=== PATIENT | male | born 1980 | race Caucasian/White ===

== ENCOUNTER 2023-06-23 08:09 | Emergency (ER) | payer BC, SELFPAY ==
[2023-06-23 08:20] VITALS: BP 179/104; PULSE 87; RESP 18; TEMP 36.8; O2SAT 98
--- NOTE | 2023-06-23 08:27 | ED.MALEGU ---
HPI - Male Genitourinary General Stated complaint: std check History of Present Illness HPI Narrative: patient presents with concerns for std patient denies any exposure no symptoms is concerned due to one incidence of unprotected sexual intercourse. Related Data Home Medications Medication Instructions Recorded Confirmed losartan 50 mg tablet 50 mg PO DAILY 06/23/23 06/23/23 Allergies Allergy/AdvReac Type Severity Reaction Status Date / Time No Known Allergies Allergy Unverified 06/23/23 08:17 Review of Systems Review of Systems: Review of systems CONSTITUTIONAL: Denies fever, chills, or sweats. EYES: Denies visual changes, redness, or discharge. ENT: Denies rhinorrhea, congestion, sore throat, or otalgia. CARDIOVASCULAR: Denies chest pain, palpitations, or edema. RESPIRATORY: Denies cough or dyspnea. GASTROINTESTINAL: Denies abdominal pain, nausea, vomiting, or diarrhea. GENITOURINARY: Denies dysuria or hematuria. SKIN: Denies rash or itching. MUSCULOSKELETAL: Denies back pain, joint pain, or myalgia. NEUROLOGIC: Denies headache, numbness, or weakness. PSYCHIATRIC: Denies anxiety or depression. PMFSH Comments At time of signature, agree with nursing past medical, surgical, social and family history. There is no relevant family history pertinent to the presenting complaint Exam Narrative: GENERAL: Well-appearing, well-nourished, and in no acute distress. HEAD: Normocephalic, atraumatic. EYES: PERRLA and EOMI. ENT: Nares clear, no rhinorrhea or epistaxis. Mucous membranes moist. NECK: Supple. CHEST: Clear to auscultation. No respiratory distress. HEART: Regular rate and rhythm. No murmur heard. Normal peripheral pulses. ABDOMEN: Soft, nontender, nondistended, normal active bowel sounds. EXTREMITIES: Normal range of motion. No edema. SKIN: Warm, dry, no rash. NEURO: No focal deficits. Alert and oriented x3. [place] Coma Scale Eye Opening: Spontaneous 4 Cris Coma Scale Motor: Obeys Commands 6 [place] Coma Scale Verbal: Oriented 5 [place] Coma Scale Total 15 Course Course Level of Care: Express Care Visit Vital Signs Vital signs: Vital Signs Temperature 36.8 C 06/23/23 08:20 Pulse Rate 87 06/23/23 08:20 Respiratory Rate 18 06/23/23 08:20 Blood Pressure 179/104 H 06/23/23 08:20 Pulse Oximetry 98 06/23/23 08:20 Oxygen Delivery Room Air 06/23/23 08:20 Temperature 36.8 C 06/23/23 08:20 Pulse Rate 87 06/23/23 08:20 Respiratory Rate 18 06/23/23 08:20 Blood Pressure 179/104 H 06/23/23 08:20 Pulse Oximetry 98 06/23/23 08:20 Oxygen Delivery Room Air 06/23/23 08:20 Please GIAN schedule a followup visit with your personal physician for further evaluation and treatment. Including recheck and discussion of your blood pressure. If your symptoms persist, change or worsen significantly before you can contact your personal physician then please, without delay, go to the emergency department for further evaluation discussed treatment today patient declines any treatment and will wait for results and will be treated if anything is positive. MDM - Male Genitourinary Differential Diagnosis Differential diagnosis: Likely urinary tract infection, urethritis, epididymitis, genital herpes simplex, prostatitis and acute retention of urine Discharge Plan Discharge Clinical Impression: Encounter for assessment of STD exposure Patient Disposition: Home, Self-Care Condition: Stable Instructions: Sexually Transmitted Diseases (ED) Additional Instructions: we will call with results when available we only test for gonorrhea, chlamydia and trichomonosis at this facility please practice safe sex for further testing follow up with your primary care provider or [facility] Follow-up/Referrals: Harms,Luis A Rodriges M.D. [Primary Care Provider] -
[2023-06-23 08:29] VITALS: BP 179/104; PULSE 87; RESP 18; TEMP 36.8; O2SAT 98
[2023-06-23 08:35] VITALS: BP 160/90
== END 2023-06-23 08:35 | disposition home or self-care (01) ==
PROVIDERS: Emergency Provider Nurse Practitioner Family; PCP Family Medicine
DX: Z20.2 Contact with and (suspected) exposure to infections with a predominantly sexual mode of transmission (principal); I10 Essential (primary) hypertension
CPT/HCPCS: 81003; 87491; 87591; 87661; 99203; G0463

== ENCOUNTER 2025-08-19 17:13 | Emergency (ER) | payer OTHER, SELFPAY ==
--- OUTSIDE RECORDS SUMMARY | 2025-08-19 17:18 | XMS_ITS | Clinical Summary ---
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 Name Role Phone Unavailable Primary Care Provider Unavailabl e Social History Tobacco Use Types Packs/Day Years Used Date Smoking Tobacco: Never Assessed Sex and Gender Information Value Date Recorded Sex Assigned at Not on file Legal Sex Male 8:27 PM CDT Gender Identity Not on file Sexual Orientation Not on file Plan of Treatment Health Maintenance Due Date Last Done Comments Annual Physical 1984 Hepatitis C 1999 DTaP, Tdap and Td Vaccines ( 1 - Tdap) 2000 Hepatitis B Vaccines (1 of 3 - 19+ 3-dose series) 2000 HPV Vaccines (1 - 3-dose SCD M series) 2008 COVID-19 Vaccine (1 - 2023-2 5 season) 2025 Meningococcal B Vaccine Aged Out No l onger eligible based on patient's age to complete this topic Meningococcal Vaccine Aged Out No carl rodrigo eligible based on patient's age to complete this topic Pneumococcal Vaccine: Pediat rics (0 to 5 Years) and At-Risk Patients (6 to 49 Years) Aged Out No longer eligible b ased on patient's age to complete this topic RSV Immunizations Under 20 Months Aged Out No longer eligible based on patient's age to complete this topic
--- OUTSIDE RECORDS SUMMARY | 2025-08-19 17:18 | XMS_ITS | Clinical Summary ---
Author Organization [facility] Address [address] [place] [address] Phone Care Team Providers Care Concrete Journeyman Name Role Phone Luis A Valentino MD Primary Care Provider [phone] Allergies No known active allergies Medications lisinopril (PRINIVIL, ZESTRIL) 20 MG Tablet 08/09/2020 Active Social History Tobacco Use Types Packs/Day Years Used Date Smoking Tobacco: Never Smokeless Tobacco: Never Sex and Gender Information Value Date Recorded Sex Assigned at Not on file Legal Sex Male 8:47 PM CDT Gender Identity Not on file Sexual Orientation Not on file Last Filed Vital Signs Vital Sign Reading Time Taken Comments Blood Pressure 170/90 10/25/2020 4: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 Pulse 87 10/25/2020 4: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 Temperature 37.1 C (98.7 F) 10/25/2020 4: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 Respiratory Rate 20 10/25/2020 4: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 Oxygen Saturation 98% 10/25/2020 4: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 Inhaled Oxygen Concentration - - Weight - - Height - - Body Mass Index - - Plan of Treatment Health Maintenance Due Date Last Done Comments Hepatitis C Virus (HCV) Screening 1981 TdaP Immunization 1981 Hepatitis B Immunization (1 of 3 - 19+ 3-dose series) 2000 Human Papillomavirus (HPV) Immunization (1 - 3-dose SCDM series) 2008 Influenza Immunization (#1) 2025 SARS-COV-2 Immunization (2 - 2024- season) 2025 07/05/2021 Respiratory Syncytial Virus (RSV) Immunization (Adult) (1 - 1-dose 75+ series) 2056 Meningococcal Immunization (ACWY) Aged Out No longer eligible based on patient's age to complete this topic Pneumococcal Immunization Combined Aged Out No longer eligible based on patient's age to complete this topic Rotavirus Immunization Aged Out No lo nger eligible based on patient's age to complete this topic Insurance [facility] Care Teams Concrete Journeyman Relationship Specialty Start Date End Date [place] [id number] PCP - General Internal Medicine 10/25/20
--- OUTSIDE RECORDS SUMMARY | 2025-08-19 17:18 | XMS_ITS | Clinical Summary ---
Author Organization [facility] [address] [facility] lt Address [address] [place] [address] Care Team Providers Care Machine Chocolate Molder Name Role Phone Luis A Valentino MD Primary Care Provider [phone] Allergies No known active allergies Medications ibuprofen (ADVIL,MOTRIN) 200 mg tab/cap Take 1 tablet/capsule (200 mg total) by mouth 2 (two) times a day Active albuterol HFA (PROVENTIL HFA,VENTOLIN HFA,PROAIR HFA) 90 mcg/actuation inhalerIndicatio ns:Acute cough Inhale 2 puffs every 6 (six) hours as needed for wheezing 1 each 02/15/20 23 Active Additional Information Patient not taking.Reported on 02/20/2025 hydrocortisone (ANUSOL-HC) 25 mg suppositoryIndic ations:Hemorrhoi ds Insert 1 suppository (25 mg total) into the rectum 2 (two) times a day as needed for hemorrhoids 12 suppository 1 11/21/20 23 Active multivitamin with minerals tablet Take 1 tablet by mouth daily Active syringe, disposable, 3 mL syringeIndicatio ns:Low testosterone in male 1 SYRINGE EVERY 14 DAYS 25 each 08/06/20 24 Active fluticasone propionate (FLONASE) 50 mcg/actuation nasal sprayIndications :Non-seasonal allergic rhinitis due to pollen Administer 2 sprays into each nostril daily 1 each 12/24/19 25 Active needle, disp, 23 gauge 23 gauge x 1 needleIndication s:Use to administer testosterone. 1 Device every 14 (fourteen) days 100 each 12/31/19 25 Active needle, disp, 18 G 18 gauge x 1 needleIndication s:Use to draw up testosterone. 1 each every 14 (fourteen) days 100 each 12/31/19 25 Active amLODIPine (NORVASC) 10 mg tablet Take 1 tablet (10 mg total) by mouth daily 90 tablet 3 02/21/20 25 026 Active losartan (COZAAR) 100 mg tabletIndication s:Hypertension, essential Take 1 tablet (100 mg total) by mouth daily 90 tablet 3 02/21/20 25 026 Active testosterone cypionate (DEPO-TESTOTERON E) 200 mg/mL injectionIndicat ions:Low testosterone in male Inject 2 mL (400 mg total) into the muscle as instructed every 14 (fourteen) days 10 mL 1 05/19/20 25 Active Active Problems Problem Noted Date Diagnosed Date Chronic sinusitis 01/11/2025 Assessment & Plan (01/11/2025 9:28 AM PUBLIC HEALTH ADVISOR): See discussion as above. Reviewed current medical regimen and given perisstent syjmptoms will refer for anatomic evlauation and will continue to follow response. Low testosterone in male 01/11/2025 Assessment & Plan (01/11/2025 9:28 AM PUBLIC HEALTH ADVISOR): Continue on montiring for therapeutic testosterone levels and will folwlroe sponse. Morbid obesity with BMI of 40.0-44.9, adult 03/2025 Assessment & Plan (01/11/2025 9:27 AM PUBLIC HEALTH ADVISOR): Encoruage 150min/week aerobic exercise. Healthy food chocies and iwll montior ersponse. Body mass index 40.0-44.9, adult ([facility]) 12/31 Assessment & Plan (01/11/2025 9:28 AM PUBLIC HEALTH ADVISOR): Encourage 150min/week aerobic exericse. WIll continue to follow response. Non-seasonal allergic rhinitis due to pollen Assessment & Plan (12/24/2024 8:07 AM PUBLIC HEALTH ADVISOR): Nasal saline spray (Simply saline, [employer] [place], [place], [place]) 2 second sprays or 2 squeezes into each nostril while looking down over the sink, do not need to sniff in. Flonase 2 sprays into each nostril while looking down over the sink, do not sniff in or blow nose after use for at least 30 minutes daily Blood allergy testing Consider adding Zyrtec based on Allergy testing results Follow up in 6-8 weeks, if no improvement will trial Pepcid 40 mg at bedtime BRBPR (bright red blood per rectum) 11/21/2023 Rectal pain 11/21/2023 Intermittent constipation 11/21/2023 Bright red blood per rectum 11/21/2023 Anal or rectal pain 11/21/2023 Constipation 11/21/2023 Encounter for assessment of STD exposure 023 Assessment & Plan (06/26/2023 9:58 AM CDT): Patient is not experiencing any symptoms. Offered additional STD testing/labs, patient declines. Discussed option to go ahead and treat in office today, patient prefers to wait for OSH STD test results. He was tested for gonorrhea, chlamydia and Trichomonas at [facility] on 06/23/2023 Acute idiopathic gout involving toe of left foot 09/11/2018 Assessment & Plan (09/11/2018 2:10 PM CDT): Gout is a syndrome of hyperuricemia and deposition of urate crystals causing attacks of acute inflammatory arthritis; tophi around the joints and possible joint destruction; renal glomerular, tubular, and interstitial disease; and uric acid urolithiasis. The disease most commonly affects the first toe (podagra), foot, ankle, knee, fingers, wrist, and elbow; however, it can affect any joint. Risk factors that can lead to gout include eating foods with high purine like seafood, meat, and alcohol especially Beer. Limit intake of soda and other beverages that contain sweeteners with high fructose corn syrup. Limit vegetables that are high in purines like asparagus, spinach, and mushrooms. If you are diabetic-keep your blood sugar controlled. If you have high blood pressure keep it controled and maintain a healthy weight. Increase water intake and stay well hydrated. Rest and Elevate affected joint when sitting or lying down to help reduce swelling Take any medications as prescribed If symptoms worsen- go to ER or call PCP Obesity (BMI 30-39.9) 09/11/2018 Assessment & Plan (09/11/2018 5:52 PM CDT): Obesity is unchanged. Discussed the patient's BMI. The BMI is above average; BMI management plan is completed. General weight loss/lifestyle modification strategies discussed (elicit support from others; identify saboteurs; non-food rewards, etc). Diet= low-carb Limit white bread, rice, pasta, potatoes, juice, energy drinks, coffee creamers with sugar, sugar sodas, candy, cake, cookies, ice cream. Be more careful with starchy vegetables like corn, carrots, and fruits. Stay away from processed foods, fast foods, fried foods. The cornerstone of this diet is lean grilled meats, green salads or cooked greens, fat-free milk, cottage cheese, nuts like [id number], protein bars with 10-15 g of protein and 20-30 g of carbohydrate. Choose whole grain breads and pastas, brown rice, sweet potatoes, read onions--these whole grains absorb more slowly thus blood sugar does not surge so high so quickly. Avoid drinking juice, eat a piece of fruit instead. Onychomycosis of toenail 09/14/2016 Overview (03/01/2017): Fungal infection of toenail Assessment & Plan (09/11/2018 2:10 PM CDT): Walking on locker room floors or using communal showers can expose you to fungal elements. Shoes that are to tight and get too warm and sweaty can promote fungal growth or athletes foot. You can try putting powder on your feet not in your shoes to help with absorbing moisture. You can also try putting a small strand of Dr. Crouch's lambs wool or cotton balls between your toes if it is between your toes. Try wearing wider shoes. Change the inserts in your shoes frequently. If your athlete foot is really bad you can try Elizabeth's wet dressings applied for 30 minutes twice a day along with your antifungal cream. You must apply the antifungal cream twice a day every day and be consistent with treatment or it will come back. You will need to use the cream for about 4 weeks. You are very susceptible for it to return once you have athletes foot. If it starts to return, you need to use the cream again for 2-4 more weeks. You may also need an oral form of medication to help. Make sure after you shower that you dry everything else before you touch your feet. You can spread this to other parts of your body. 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 WIll montiro resopnse. No change at the present time. WIll follow response. No chest pains/pressures. Assessment & Plan (06/26/2023 1:04 PM CDT): Patient currently experiencing increase anxiety with pending test results. Reviewed elevated BP readings in ER as well. Will increase losartan to 100 mg daily and monitor response in the next 2 weeks. Encouraged patient to work on stress reduction, reduce sodium intake,healthy diet and weight loss. BP goal <130 systolic. Reviewed s/s warranting immediate medical evaluation. Assessment & Plan (09/11/2018 5:55 PM CDT): Hypertension is worsening Continue current medications.-Restart medications. Pt. Has not been taking any BP medications. Reports he does not like taking medications. Just tries to watch his diet. BP is very elevated today. Explained to him the risk of uncontrolled high blood pressure He has agreed to restart his BP medications Pt. To check and record his BP readings and bring them to his next visit. Blood pressure will be reassessed in 4 weeks. Lifestyle changes can help you control and prevent high blood pressure, even if you're taking blood pressure medication. Here's what you can do: Eat healthy foods. Eat a healthy diet. Try the Dietary Approaches to Stop Hypertension (DASH) diet, which emphasizes fruits, vegetables, whole grains, poultry, fish and low-fat dairy foods. Get plenty of potassium, which can help prevent and control high blood pressure. Eat less saturated fat and trans fat. Decrease the salt in your diet. A lower sodium level -- 1,500 milligrams (mg) a day -- is appropriate for people 51 years of age or older, and individuals of any age who are black or who have hypertension, diabetes or chronic kidney disease. Maintain a healthy weight. Keeping a healthy weight, or losing weight if you're overweight or obese, can help you control your high blood pressure and lower your risk of related health problems. If you're overweight, losing even 5 pounds (2.3 kilograms) can lower your blood pressure. Increase physical activity. Regular physical activity can help lower your blood pressure, manage stress, reduce your risk of several health problems and keep your weight under control. Limit alcohol. Even if you're healthy, alcohol can raise your blood pressure. If you choose to drink alcohol, do so in moderation. For healthy adults, that means up to one drink a day for women of all ages and men older than age 65, and up to two drinks a day for men age 65 and younger. One drink equals 12 ounces of beer, 5 ounces of wine or 1.5 ounces of 80-proof liquor. Don't smoke. Tobacco injures blood vessel gomez and speeds up the process of hardening of the arteries. If you smoke, ask your doctor to help you quit. Manage stress. Reduce stress as much as possible. Practice healthy coping techniques, such as muscle relaxation, deep breathing or meditation. Getting regular physical activity and plenty of sleep can help, too. Notify the office for blood pressure greater than 130/80 Hyperlipidemia 04/26/1997 Overview (03/01/2017): Hyperlipidemia Assessment & Plan (09/11/2018 5:56 PM CDT): Lipid abnormalities are unchanged. Nutritional counseling was provided. Lipids will be reassessed in 6 months. Pt. Did not get recent labs drawn that were ordered in May. Reprinted lab orders a gave them to patient. Will recheck Lipid panel Encounters Date Type Department Care Team Description 08/12/2025 Telephone [facility] [address] [address] Luis A Valentino MD 05/20/2025 Telephone [facility] [address] [address] Luis A Valentino MD Prior Auth (TESTOSTERONE) from Last 3 Months Immunizations Immunization Administration Dates Next Due Influenza, Quadrivalent, Spl it, Preservative Free, Intramuscular 09/11/2018 Influenza, Unspecified 06/23/2024(Deferr ed: Patient Refused),07/27/2023(Deferred: Patient Refused),03/30/2023(Deferred: Patient Refused),09/20/2022(Deferred: Patient Refused),08/26/2022(Deferred: Patient Refused),07/27/2022(Deferred: Patient Refused),08/26/2021(Deferred: Patient Refused),07/27/2021(Deferred: Patient Refused),05/16/2021(Deferred: Patient Refused),11/08/2020(Deferred: Patient Refused),08/09/2020(Deferred: Patient Refused),11/26/2019(Deferred: Patient Refused),11/26/2019(Deferred: Patient Refused),10/26/2019(Deferred: Patient Refused),12/03/2017(Deferred: Patient Refused) Td, adsorbed 12/28/2005 Surgical History Surgery Date Site/Laterality Comments OTHER SURGICAL HISTORY Left hand injury: L finger amputee OTHER SURGICAL HISTORY first joint amputaion to left middle finger and little finger / due to injury OTHER SURGICAL HISTORY Bilateral TEP Endoscopic Inguinal Hernia Repair HERNIA REPAIR COLONOSCOPY 02/19/2024 1st Medical History Medical History Date Comments Hx Other Medical 2012 chronic knee pa in; Comments: [facility] 11/06/2014 - Hypertension 1996 Hypertension; Co mments: [facility] 11/06/2014 - Hx Other Medical 2013 hyperlipidemia; Comments: [facility] 11/06/2014 - Hx Other Medical 2010 hand injury; Co mments: [facility] 11/06/2014 -; Laterality: left Hypertension Hypertension Family History Medical History Relation Name Comments Diabetes Father Diabetes mellit us; Hypertension Father Hypertension; Prostate cancer Maternal Grandfather Canc er, prostate; Crohn's disease Mother Crohn's dise ase; Bone cancer Paternal Grandfather Cancer, bone; Coronary artery disease Paternal Grandmother Coronary artery disease; Other Sister x2 Alive and well; Cancer Neg Hx Heart disease Neg Hx Stroke Neg Hx Relation Name Status Comments Father Maternal Grandfather Mother Paternal Grandfather Paternal Grandmother Sister x2 Alive Social History Tobacco Use Types Packs/Day Years Used Date Smoking Tobacco: Never Smokeless Tobacco: Never Tobacco Cessation:Counseling Given: Not Answered Alcohol Use Standard Drinks/Week Comments No 0 (1 standard drink = 0.6 oz pur e alcohol) [facility] [employer] Answer Date Recorded In the past 12 months has e [employer], gas, oil, or water [employer] threatened to shut off services in your home? No 12/31/2024 Humiliation, Afraid, Rape, and Kick questionnair e Answer Date Recorded Within the last year, have y ou been afraid of your partner or ex-partner? No 12/31/2024 Within the last year, have y ou been humiliated or emotionally abused in other ways by your partner or ex-partner? No Within the last year, have y ou been kicked, hit, slapped, or otherwise physically hurt by your partner or ex-partner? No 12/31/2024 Within the last year, have y ou been raped or forced to have any kind of sexual activity by your partner or ex-partner? No 12/31/2024 Social Connection and Isolation Panel Answer Date Recorded In a typical week, how many times do you talk on the phone with family, friends, or neighbors? More than three times a week 12/31/2024 How often do you get togethe r with friends or relatives? More than three times a week 12/31/2024 How often do you attend chur or sikhism services? More than 4 times per year 12/31/2024 Do you belong to any clubs o r organizations such as gnosticist groups, unions, fraternal or athletic groups, or school groups? Yes 12/31/2024 How often do you attend meet ings of the clubs or organizations you belong to? More than 4 times per year 12/31/2024 Are you , , di vorced, , never , or living with a partner? 12/31/2024 AUDIT-C Answer Date Recorded Q1: How often do you have a drink containing alc ohol? Monthly or less 12/31/2024 Q2: How many drinks containi ng alcohol do you have on a typical day when you are drinking? 1 or 2 12/31/2024 Q3: How often do you have si x or more drinks on one occasion? Never 12/31/2024 Overall Financial Resource Strain (CARDIA) Answe r Date Recorded How hard is it for you to pa y for the very basics like food, housing, medical care, and heating? Not hard at all 12/31/2024 PHQ-2 Answer Date Recorded PHQ-2 Total Score (If total score is 3 or more points, staff should administer the PHQ-9) 0 12/31/2024 [facility] - Occupational Stress Questionnaire Answer Date Recorded Do you feel stress - tense, restless, nervous, or anxious, or unable to sleep at night because your mind is troubled all the time - these days? To some extent 12/31/2024 Exercise Vital Sign Answer Date Recorde d On average, how many days pe r week do you engage in moderate to strenuous exercise (like a brisk walk)? 3 days 12/31/2024 On average, how many minutes do you engage in exercise at this level? 30 min 12/31/2024 Hunger Vital Sign Answer Date Recorded Within the past 12 months, y ou worried that your food would run out before you got the money to buy more. Never true 12/31/19 Within the past 12 months, t he food you bought just didn't last and you didn't have money to get more. Never true 12/31/2024 PRAPARE - Transportation Answer Date Re corded In the past 12 months, has l ack of transportation kept you from medical appointments or from getting medications? No 03/2025 In the past 12 months, has l ack of transportation kept you from meetings, work, or from getting things needed for daily living? No 12/31/2024 PHQ-9 Answer Date Recorded PHQ-9 Total Score 0 12/31/2024 Housing Stability Vital Sign Answer Soren e Recorded In the last 12 months, was t here a time when you were not able to pay the mortgage or rent on time? No 12/31/2024 In the past 12 months, how m any times have you moved where you were living? 0 12/31/2024 At any time in the past 12 m [facility], were you homeless or living in a care home (including now)? No 12/31/2024 Personal Safety Answer Date Recorded Have you ever been in or are you currently in a harmful physical or emotional relationship or is someone making you feel afraid or unsafe? Denies 02/19/2024 Sex and Gender Information Value Date Recorded Sex Assigned at Not on file Legal Sex Male 11:25 AM PUBLIC HEALTH ADVISOR Gender Identity Not on file Sexual Orientation Not on file Obstetrics History Last Filed Vital Signs Vital Sign Reading Time Taken Comments Blood Pressure 148/79 02/20/2025 3:02 PM CDT Pulse 71 02/20/2025 3:02 PM CDT Temperature 36.7 C (98 F) 12/31/2024 1:21 PM PUBLIC HEALTH ADVISOR Respiratory Rate 18 12/31/2024 1:21 PM PUBLIC HEALTH ADVISOR Oxygen Saturation 98% 12/31/2024 1:21 PM PUBLIC HEALTH ADVISOR Inhaled Oxygen Concentration - - Weight 120.2 kg (265 lb) 02/20/2025 3:02 PM CDT Height 175.3 cm (5' 9) 02/20/2025 3:02 PM CDT Body Mass Index 39.13 02/20/2025 3:02 PM CDT Plan of Treatment Health Maintenance Due Date Last Done Comments Varicella Vaccines (1 of 2 - 13+ 2-dose series) 1994 Hepatitis B Screening 1999 DTaP/Tdap/Td Vaccine (1 - Tdap) 12/29/2005 12/28/2005 HPV Vaccines (1 - 3-dose SCDM series) 2008 Regular Well Visit/Exam 18-64 05/16/2022 05/16/2021 Influenza Vaccine (#1) 2025 09/11/2018 Depression Screening 12/31/2025 12/31/2024, 12/31/2024, 06/23/2024, Additional history exists Hepatitis C Screening Completed 11/28/2016 Pneumococcal vaccine <65 Aged Out No longer eligible based on patient's age to complete this topic Procedures Procedure Name Priority Date/Time Associated Diagnosis Comments SERUM HEPATITIS PANEL Routine 11/28/2016 4:22 AM PUBLIC HEALTH ADVISOR from Last 3 Months or Most Recently Relevant to Health Maintenance Results * Serum Hepatitis panel (11/28/2016 4:22 AM PUBLIC HEALTH ADVISOR) Pathologist [facility] HAV ab, IgM NON-REACTI VE NON-REACTI VE CDR HISTORICAL RESULTS Hepatitis signal to cutoff ratio 0.05 <1.00 CDR HISTORICAL RESULTS HBV surface ag NON-REACTI VE NON-REACTI VE CDR HISTORICAL RESULTS HBV core ab, IgM NON-REACTI VE NON-REACTI VE CDR HISTORICAL RESULTS HCV ab NON-REACTI VE NON-REACTI VE CDR HISTORICAL RESULTS Serum 11/28/2016 4:22 AM PUBLIC HEALTH ADVISOR Narrative CDR HISTORICAL RESULTS - 11/30/2016 9:00 AM PUBLIC HEALTH ADVISOR Test performed at [facility] [place] [id number] [place] [id number] Director: HAYLEY OROSCO DO,MPH us Historical Provider LAB BLOOD ORDERABLES Albina barrios Result CDR HISTORICAL RESULTS from Last 3 Months or Most Recently Relevant to Health Maintenance Insurance BLUE ACCESS [facility] BLUE ACCESS [place] [facility] Advance Directives For more information, please contact: [phone] * Full Code (Latest Code Status on File) Date Activated Date Inactivated Comments 02/19/2024 10:03 AM 02/19/2024 4:58 PM * Full Code Date Activated Date Inactivated Comments 02/19/2024 10:03 AM 02/19/2024 10:03 AM Care Teams Machine Chocolate Molder Relationship Specialty Start Date End Date Luis A Valentino MD [address] [place] [address] PCP - General 04/28/15
--- OUTSIDE RECORDS SUMMARY | 2025-08-19 17:18 | XMS_ITS | Clinical Summary ---
Author Organization [facility] Address [address] [place] [address] Care Team Providers Care Straddle Bug Name Role Phone Luis A Valentino MD Primary Care Provider [phone] Source Comments [facility],non-owned Affiliates and Associated Physician Practices is amultiple site organization consisting of ambulatory clinics and hospital sitesin [place], [place], [place] and [place]. This disclosure is being madepursuant to the Care Everywhere program and may not contain all information available regarding this patient. Last updated 18.[facility] Allergies No known active allergies Medications * Be aware that medications may not be up to date on this document. Alwaysverify current medications with the patient. No known medications Family History Medical History Relation Name Comments Diabetes - Type 2 Father Relation Name Status Comments Father Social History Tobacco Use Types Packs/Day Years Used Date Smoking Tobacco: Never Smokeless Tobacco: Never Sex and Gender Information Value Date Recorded Sex Assigned at Not on file Legal Sex Male 2:53 PM CDT Gender Identity Not on file Sexual Orientation Not on file Last Filed Vital Signs Vital Sign Reading Time Taken Comments Blood Pressure 136/88 07/25/2017 4:13 PM CDT Pulse 78 07/25/2017 4:13 PM CDT Temperature 37.1 C (98.7 F) 07/25/2017 4:13 PM CDT Respiratory Rate 20 07/25/2017 4:13 PM CDT Oxygen Saturation 98% 07/25/2017 4:13 PM CDT Inhaled Oxygen Concentration - - Weight 113.4 kg (250 lb) 07/25/2017 4:13 PM CDT Height 175.3 cm (5' 9) 07/25/2017 4:13 PM CDT Body Mass Index 36.92 07/25/2017 4:13 PM CDT Plan of Treatment Health Maintenance Due Date Last Done Comments LIPID TESTING 1981 HIV SCREENING 1996 HEPATITIS C SCREENING 06/16/1999 DTAP/TDAP/TD VACCINES (1 - Tdap) 2000 HEPATITIS B VACCINE (1 of 3 - 19+ 3-dose series) 2000 HPV VACCINE (1 - 3-dose SCDM series) 2008 DEPRESSION SCREENING 11/26/2024 COVID-19 VACCINE (1 - 2023-2 5 season) 2025 INFLUENZA VACCINE (#1) 2025 ZOSTER VACCINE (1 of 2) 2031 HIB VACCINE Aged Out No longer eligi ble based on patient's age to complete this topic MENINGOCOCCAL (Group B) VACC INE SHARED DECISION-MAKING Aged Out No longer eligibl e based on patient's age to complete this topic MENINGOCOCCAL GROUPS A/C/Y/W VACCINE Aged Out No longer eligible b ased on patient's age to complete this topic PNEUMOCOCCAL VACCINE Aged Out No long er eligible based on patient's age to complete this topic Insurance [facility], [facility] Care Teams Straddle Bug Relationship Specialty Start Date End Date [place] [id number] PCP - General Internal Medicine 07/25/17
--- OUTSIDE RECORDS SUMMARY | 2025-08-19 17:18 | XMS_ITS | Patient Health Record ---
Author Organization [facility] Address [address], [place] [id number] Care Team Providers Care Office Manager Name Role Phone Heather, a provider Primary Care Provider Aaron Kuo [facility] Unavailable [phone] Reason For Referral No Information Plan Of Treatment No Information
[2025-08-19 17:25] VITALS: BP 179/94; PULSE 87; RESP 16; TEMP 36.4; O2SAT 98
--- NOTE | 2025-08-19 17:28 | ED.SKABFB ---
HPI - Skin/Abscess/Foreign Bdy General Chief complaint: Skin/Abscess/Foreign Body Stated complaint: Rash Time Seen by Provider: 08/19/25 17:28 Source: patient Mode of arrival: ambulatory Limitations: no limitations History of Present Illness HPI narrative: 45 yo M presents with nonpainful rash to groin area for 2 days. Noticed after shaving 3 days ago. Denies itching. All systems reviewed and negative except as noted above. Related Data Home Medications ?Medication ?Instructions ?Recorded ?Confirmed ?Last Taken ?Type losartan 50 mg tablet 50 mg PO DAILY 06/23/23 06/23/23 Unknown History Allergies Allergy/AdvReac Type Severity Reaction Status Date / Time No Known Allergies Allergy Verified 08/19/25 17:24 PMFSH Comments At time of signature, agree with nursing past medical, surgical, social and family history. There is no relevant family history pertinent to the presenting complaint. Exam Narrative: GENERAL: This is a well-nourished, well-developed patient, in no apparent distress. HEAD: normocephalic, atraumatic. EYES: PERRL. Sclera clear/white. Vision is grossly intact. EARS: External ears normal NOSE: External nose normal NECK: Neck supple, non-tender without lymphadenopathy, masses or thyromegaly. CARDIOVASCULAR: Regular rate and rhythm without murmurs, gallops, or rubs. RESPIRATORY: Clear to auscultation. Breath sounds equal bilaterally. No wheezes, rales, or rhonchi. SKIN: warm, Dry, intact, good texture and turgor. erythematous vesicular lesions in cluster to mons pubis and base of shaft NEURO: awake, alert, and oriented to person, place and time. There were no obvious focal neurologic abnormalities. EXTREMITIES: No joint tenderness, effusion, or edema noted. : Male genitals images:  1. cluster of vesicles at base of shaft and mons pubis Course Course Level of Care: Express Care Visit Vital Signs Vital signs: Vital Signs Temperature 36.4 C L 08/19/25 17:25 Pulse Rate 87 08/19/25 17:25 Respiratory Rate 16 08/19/25 17:25 Blood Pressure 179/94 H 08/19/25 17:25 Pulse Oximetry 98 08/19/25 17:25 Oxygen Delivery Room Air 08/19/25 17:25 Temperature 36.4 C L 08/19/25 17:25 Pulse Rate 87 08/19/25 17:25 Respiratory Rate 16 08/19/25 17:25 Blood Pressure 179/94 H 08/19/25 17:25 Pulse Oximetry 98 08/19/25 17:25 Oxygen Delivery Room Air 08/19/25 17:25 reviewed MDM - Skin/Abscess/Foreign Bdy MDM Narrative Medical decision making narrative: herpes culture ordered. pt wants to start antiviral today versus wait for results. Will follow up with PCP. Discharge Plan Discharge Clinical Impression: Rash, vesicular Patient Disposition: Home Condition: Stable Instructions: Genital Herpes Infection (ED) Additional Instructions: Take antiviral as prescribed. Last results will take 5 to 7 days. If rash not improving see your primary care physician. Patient Language: Divehi Prescriptions: New valacyclovir 1 gram tablet 1,000 mg PO BID 7 Days Qty: 14 0RF No Action losartan 50 mg tablet 50 mg PO DAILY Follow-up/Referrals: Harms,Luis A Rodriges M.D. [Primary Care Provider] Time of Disposition: 17:41
[2025-08-23 14:08] LABS: HSV-1 DNA Negative (Negative); HSV-2 DNA Negative (Negative)
== END 2025-08-19 17:45 | disposition home or self-care (01) ==
PROVIDERS: Emergency Provider Nurse Practitioner Family; PCP Family Medicine
DX: R21 Rash and other nonspecific skin eruption (principal); I10 Essential (primary) hypertension
CPT/HCPCS: 86615; 87529; 99213; G0463